=== PATIENT | female | born 1990 | race Caucasian/White ===

== ENCOUNTER 2020-04-05 18:42 | Emergency (ER) | payer OTHER ==
--- NOTE | 2020-04-05 20:19 | EDM.PDOC ---
ED HPI GENERAL MEDICAL PROBLEM - General Chief Complaint: General Stated Complaint: CHEST PAIN Time Seen by Provider: 04/05/20 19:07 - History of Present Illness INITIAL COMMENTS - FREE TEXT/NARRATIVE: Helena is a 29-year-old female presenting to the ED for evaluation of central chest pressure, increased mood swings with increased crying, abdominal cramping and recurrent diarrhea. Patient is 3 weeks post demise. This is the patient's third miscarriage. 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 The patient has been followed by her primary provider near the [facility] and did do a course of misoprostol for retained gestational sac. She has subsequently passed all the products of conception which was verified by ultrasound. On , the patient developed central chest pressure associated with some nausea. She did some calming measures and was able to get this under control. Over the last couple of days the patient has had recurrence of the central chest pressure and yesterday it was associated with some nausea and flushing. She developed diarrhea and has had 4-6 episodes of loose stools today with abdominal cramping. She is also had flushing of the face and chest, palpitations, chest pressure, again with some mild nausea but no vomiting. She denies any fever but has had chills. She has had no loss of taste or smell and has been keeping her social distancing due to the COVID-19 crisis. The patient did undergo some therapy for depression after her second miscarriage but thought that she had been coping well with the third 1, however, her reports that the patient has been more tearful and crying more frequently especially over the last day or so. He notes that she has had large mood swings which she is attributed to the miscarriage. The patient has a rather unusual menstrual cycle going approximately 40 days between periods. She estimated her last gestation was 29 days into her cycle which is what resulted in this the recently terminated. chest Pain Score (Numeric/FACES): 6 - Related Data Allergies Allergy/AdvReac Type Severity Reaction Status Date / Time amoxicillin Allergy Cannot Verified 04/05/20 19:14 Remember Penicillins Allergy Cannot Verified 04/05/20 19:14 Remember Home Meds: Home Meds Enerdreen 2 tab PO DAILY 04/05/20 [History] Magnesium 400 mg PO BEDTIME 04/05/20 [History] Pnv No.95/Ferrous Fum/Folic AC [ Multivitamin Tablet] 1 tab PO DAILY 04/05/20 [History] Past Medical History [facility] [place] History: Reports: , Spontaneous , Other (See Below) Other [facility] [place] History: misacrriage x3. Last 3 weeks ago - Infectious Disease History Infectious Disease History: Reports: Chicken Pox Social & Family History - Tobacco Use Tobacco Use Status *Q: Never Tobacco User Second Hand Smoke Exposure: No - Caffeine Use Caffeine Use: Reports: Coffee - Alcohol Use Days Per Week of Alcohol Use: 2 Number of Drinks Per Day: 3 Total Drinks Per Week: 6 - Recreational Drug Use Recreational Drug Use: No ED ROS GENERAL - Review of Systems Review Of Systems: See Below Constitutional: Reports: Chills, Malaise, Decreased Appetite HEENT: Reports: No Symptoms Respiratory: Reports: No Symptoms Cardiovascular: Reports: Chest Pain Endocrine: Reports: No Symptoms GI/Abdominal: Reports: Abdominal Pain, Diarrhea, Decreased Appetite, Nausea : Reports: No Symptoms Musculoskeletal: Reports: No Symptoms Skin: Reports: Erythema (Flushing of the face and chest (intermittent).) Neurological: Reports: No Symptoms Psychiatric: Reports: Anxiety, Depression Hematologic/Lymphatic: Reports: No Symptoms Immunologic: Reports: No Symptoms ED EXAM, GENERAL - Physical Exam Exam: See Below Exam Limited By: No Limitations General Appearance: Alert, WD/WN, No Apparent Distress Eye Exam: Bilateral Eye: EOMI, PERRL Ears: Normal External Exam, Hearing Grossly Normal Nose: Normal Inspection, Normal Mucosa Throat/Mouth: Normal Inspection, Normal Lips, Normal Teeth, Normal Gums, Normal Oropharynx, Normal Voice, No Airway Compromise Head: Atraumatic, Normocephalic Neck: Normal Inspection, Supple, Non-Tender, Full Range of Motion. No: Carotid Bruit Respiratory/Chest: No Respiratory Distress, Lungs Clear, Normal Breath Sounds, No Accessory Muscle Use, Chest Non-Tender Cardiovascular: Normal Peripheral Pulses, Regular Rate, Rhythm, No Edema, No Gallop, No JVD, No Murmur, No Rub Peripheral Pulses: 2+: Radial (L), Radial (R) GI/Abdominal: Normal Bowel Sounds, Soft, Non-Tender, No Organomegaly, No Distention, No Abnormal Bruit, No Mass (Female) Exam: Deferred Rectal (Female) Exam: Deferred Back Exam: Normal Inspection, Full Range of Motion, NT Extremities: Normal Inspection, Normal Range of Motion, Non-Tender, Normal Capillary Refill, No Pedal Edema Neurological: Alert, Oriented, CN II-XII Intact, Normal Cognition, Normal Gait, Normal Reflexes, No Motor/Sensory Deficits Psychiatric: Anxious, Depressed Mood Skin Exam: Warm, Dry, Intact, Normal Color, No Rash, Erythema (Flushing noticed on the chest wall anteriorly.) Course - Vital Signs Last Recorded V/S: Last Vital Signs Temp 36.5 C 04/05/20 19:12 Pulse 86 04/05/20 19:12 Resp 16 04/05/20 19:12 BP 117/79 04/05/20 19:12 Pulse Ox 98 04/05/20 19:12 - Orders/Labs/Meds Orders: Active Orders 24 hr Category Date Time Status EKG Documentation Completion [RC] ASDIRECTED Care 04/05/20 19:40 Active EKG 12 Lead [EK] Routine Ther 04/05/20 19:40 Ordered Labs: Laboratory Tests 04/05/20 04/05/20 04/05/20 Range/Units 20:27 20:27 20:27 WBC 8.4 (4.5-11.0) K/uL RBC 4.28 (3.30-5.50) M/uL Hgb 12.4 (12.0-15.0) g/dL Hct 38.3 (36.0-48.0) % MCV 90 (80-98) fL MCH 29 (27-31) pg MCHC 32 (32-36) % Plt Count 250 (150-400) K/uL Neut % (Auto) 72 H (36-66) % Lymph % (Auto) 20 L (24-44) % Irion % (Auto) 7 H (2-6) % Eos % (Auto) 1 L (2-4) % Baso % (Auto) 1 (0-1) % D-Dimer, Quantitative 155.41 (0.0-500.0) ng/mL Sodium 140 (140-148) mmol/L Potassium 4.1 (3.6-5.2) mmol/L Chloride 105 (100-108) mmol/L Carbon Dioxide 24 (21-32) mmol/L Anion Gap 10.8 (5.0-14.0) mmol/L BUN 7 (7-18) mg/dL Creatinine 0.6 (0.6-1.0) mg/dL Est Cr Clr Drug Dosing 109.42 mL/min Estimated GFR (MDRD) > 60 (>60) Glucose 93 (74-106) mg/dL Calcium 9.1 (8.5-10.1) mg/dL Total Bilirubin 0.7 (0.2-1.0) mg/dL AST 26 (15-37) U/L ALT 28 (12-78) U/L Alkaline Phosphatase 53 (46-116) U/L Total Protein 6.8 (6.4-8.2) g/dL Albumin 3.8 (3.4-5.0) g/dL Globulin 3.0 (2.3-3.5) g/dL Albumin/Globulin Ratio 1.3 (1.2-2.2) TSH, Ultra Sensitive 1.580 (0.358-3.740) uIU/mL HCG, Quant 4 (0-6) mIU/mL Departure - Departure Time of Disposition: 21:22 Disposition: Home, Self-Care 01 Clinical Impression: depression, Anxiety - Discharge Information *PRESCRIPTION DRUG MONITORING PROGRAM REVIEWED*: Not Applicable *COPY OF PRESCRIPTION DRUG MONITORING REPORT IN PATIENT WILLIAMS: Not Applicable Instructions: Depression, Managing Anxiety, Adult Referrals: PCP,None [Primary Care Provider] - Forms: ED Department Discharge Care Plan Goals: I am going to start you on fluoxetine 20 mg at bedtime. Your labs today are unremarkable. Your beta-hCG is 4 (marker of ) indicating that your hormones have started to normalize. I would still recommend follow-up with an sql server dba developer to look at FSH (follicular stimulating hormone) and LH (luteinizing hormone) to evaluate why your cycles are so long. This may also help evaluate why you are having difficulty completing a . Your thyroid tests were normal. I do think that your symptoms are a combination of some depression and anxiety related to the trauma that you have experienced. You may want to consider restarting therapy as well which can be quite helpful in managing these traumas. It was a delight meeting with you tonight. Feel free to contact us if you have any additional questions. Sepsis Event Note (ED) - Evaluation Sepsis Screening Result: No Definite Risk - Focused Exam Vital Signs: Vital Signs Temp Pulse Resp BP Pulse Ox 04/05/20 19:12 36.5 C 86 16 117/79 98 - Problem List & Annotations (1) Anxiety SNOMED Code(s): 42282482 Code(s): F41.9 - ANXIETY DISORDER, UNSPECIFIED Status: Acute Priority: High Current Visit: Yes (2) depression SNOMED Code(s): 85623486 Code(s): O99.345 - OTHER MENTAL DISORDERS COMPLICATING THE PUERPERIUM; F53.0 - DEPRESSION Status: Acute Priority: High Current Visit: Yes - Problem List Review Problem List Initiated/Reviewed/Updated: Yes - My Orders Last 24 Hours: My Active Orders 04/05/20 19:40 EKG Documentation Completion [RC] ASDIRECTED EKG 12 Lead [EK] Routine - Assessment/Plan Last 24 Hours: My Active Orders 04/05/20 19:40 EKG Documentation Completion [RC] ASDIRECTED EKG 12 Lead [EK] Routine
== END 2020-04-05 21:49 | disposition home or self-care (01) ==
LOC: JP.ED 18:42
DX: O99.345 Other mental disorders complicating the puerperium (principal); F53.0 Postpartum depression; F41.9 Anxiety disorder, unspecified; R19.7 Diarrhea, unspecified; Z88.0 Allergy status to penicillin
CPT/HCPCS: 36415; 80053; 84443; 84702; 85025; 85379; 93005; 99283; 99285-25